=== PATIENT | male | born 1985 | race Caucasian/White ===

== ENCOUNTER 2018-04-28 07:00 | Emergency (ER) | payer MEDICAID ==
[~2018-04-28] VITALS: Ht 175.3 cm; Wt 63.8 kg
[2018-04-28 07:11] VITALS: BP 134/75
[2018-04-28] MEDS ORDERED: DIAZEPAM 5 MG TABLET PO ONE (07:30)
[2018-04-28] MEDS ORDERED: KETOROLAC 30 MG/1 ML IM ONE (07:30)
[2018-04-28] MEDS ORDERED: DIAZEPAM 5 MG TABLET ONE (07:35)
[2018-04-28] MEDS ORDERED: KETOROLAC 30 MG/1 ML ONE (07:35)
== END 2018-04-28 08:21 | disposition home or self-care (01) ==
LOC: ED 08:15
DX: S16.1XXA Strain of muscle, fascia and tendon at neck level, initial encounter (principal); X58.XXXA Exposure to other specified factors, initial encounter; Y93.89 Activity, other specified; Y92.89 Other specified places as the place of occurrence of the external cause; Y99.8 Other external cause status; F17.200 Nicotine dependence, unspecified, uncomplicated; F17.210 Nicotine dependence, cigarettes, uncomplicated
CPT/HCPCS: 72050; 96372; 99284; J1885